=== PATIENT | female | born 1990 | race Caucasian/White ===

== ENCOUNTER → 2016-06-26 | Outpatient (REF) | payer OTHER ==
[2016-06-27 13:40] LABS: CREATININE, SERUM 0.5 MG/DL (0.6-1.0)
[2016-06-27 13:56] LABS: CREATININE CLEARANCE, URINE 187.7 ML/MIN (75-115)
== END | disposition home or self-care (01) ==
LOC: M LAB REF 21:00
PROVIDERS: ATTEND Advanced Practice Midwife
DX: Z36 Encounter for antenatal screening of mother (principal); Z34.81 Encounter for supervision of other normal pregnancy, first trimester

== ENCOUNTER → 2016-06-27 | Outpatient (REF) | payer OTHER ==
[2016-06-27 13:39] LABS: ALT/SGPT 24 U/L (12-78); AST/SGOT 16 U/L (15-37); BILIRUBIN,TOTAL 0.2 MG/DL (0.2-1.0); CREATININE FOR GFR 0.47 MG/DL (0.55-1.02); GLOMERULAR FILTRATION RATE > 60.0 (>60); URIC ACID 3.2 MG/DL (2.6-6.0)
== END | disposition home or self-care (01) ==
LOC: M LAB REF 13:19
PROVIDERS: ATTEND Advanced Practice Midwife
DX: Z34.81 Encounter for supervision of other normal pregnancy, first trimester (principal); Z36 Encounter for antenatal screening of mother; Z3A.00 Weeks of gestation of pregnancy not specified

== ENCOUNTER → 2016-08-03 | Outpatient (CLI) | payer MEDICAID ==
[~2016-08-03] MED LIST: ACET50TA PO; PRENTAB40 PO
--- NOTE | 2016-08-03 11:44 | REP ---
Clinical: Anatomical evaluation. Comparison: None . Findings: Examination demonstrates a single live intrauterine in breech presentation. motion is identified by technologist. Placenta is noted posterior and grade 0 without evidence for placenta previa or abruption. Amniotic fluid volume is normal. Cervix measures arrival 4.5 cm in length and appears closed. Nuchal cord cannot be excluded. Gestational age by LMP 18 weeks 0 days with CIARA 01/04/2017 . Gestational age by current measurements 18 weeks 2 days with CIARA 01/02/2017 . FHR equals 146 beats per minute. BPD 4.0 cm 18 weeks 0 days HC 16.1 cm 18 weeks 6 days AC 13.0 cm 18 weeks 4 days FL 2.6 cm 18 weeks 0 days HC/AC ratio 1.24 Estimated weight 233 grams ( 59th percentile). Anatomical assessment demonstrates normal structures including cranium, choroid plexus, cavum, cerebellum/posterior fossa, facial features, lungs, four-chamber heart/ventricular outflow tracts, diaphragm, stomach, cord insertion/three-vessel cord, kidneys/bladder, spine, and extremities. Impression: 1. Single live intrauterine in breech presentation demonstrating appropriate interval growth. Nuchal cord cannot be excluded. 2. Anatomical assessment is complete and normal. Signed by Zhao Baca MD 08/03/2016 11:36 A
== END ==
LOC: M RAD 09:48
PROVIDERS: ATTEND Advanced Practice Midwife
DX: Z34.82 Encounter for supervision of other normal pregnancy, second trimester (principal)

== ENCOUNTER → 2016-10-08 | Outpatient (CLI) | payer MEDICAID ==
[2016-10-08 13:49] LABS: MEAN CORPUSCULAR HEMOGLOBIN 26.2 pg (27.0-33.0); MEAN CORPUSCULAR HGB CONC 32.3 g/dl (32.0-36.5); MEAN CORPUSCULAR VOLUME 81.3 fl (80.0-96.0); RED CELL DISTRIBUTION WIDTH 14.6 % (11.5-14.5); WHITE BLOOD COUNT 10.1 K/mm3 (4.0-10.0)
== END ==
LOC: M SMT 09:52
PROVIDERS: ATTEND Advanced Practice Midwife
DX: Z34.82 Encounter for supervision of other normal pregnancy, second trimester (principal)

== ENCOUNTER → 2016-11-29 | Outpatient (CLI) | payer BC ==
[2016-11-29 14:46] LABS: MEAN CORPUSCULAR HEMOGLOBIN 25.6 pg (27.0-33.0); MEAN CORPUSCULAR HGB CONC 32.5 g/dl (32.0-36.5); MEAN CORPUSCULAR VOLUME 78.5 fl (80.0-96.0); RED CELL DISTRIBUTION WIDTH 16.2 % (11.5-14.5); WHITE BLOOD COUNT 8.6 K/mm3 (4.0-10.0)
== END ==
LOC: M WUC 11:16
PROVIDERS: ATTEND Specialist
DX: Z34.83 Encounter for supervision of other normal pregnancy, third trimester (principal)

== ENCOUNTER → 2016-12-08 | Outpatient (REF) | payer BC | LOC: M LAB REF 17:26 | PROVIDERS: ATTEND Specialist | DX: Z34.83 Encounter for supervision of other normal pregnancy, third trimester (principal) ==

== ENCOUNTER 2017-01-11 21:37 | Inpatient (IN) | payer BC, MEDICAID, SELFPAY ==
[~2017-01-11] VITALS: Ht 160 cm; Wt 92.0 kg
[2017-01-11 22:11] VITALS: BP 133/87
[2017-01-11] MEDS ORDERED: PRENTAB9 PO (22:21)
[2017-01-11 23:05] LABS: MEAN CORPUSCULAR HEMOGLOBIN 24.6 pg (27.0-33.0); MEAN CORPUSCULAR HGB CONC 32.4 g/dl (32.0-36.5); MEAN CORPUSCULAR VOLUME 75.8 fl (80.0-96.0); RED CELL DISTRIBUTION WIDTH 17.8 % (11.5-14.5); WHITE BLOOD COUNT 10.9 K/mm3 (4.0-10.0)
[2017-01-11 23:27] VITALS: BP 112/73
[2017-01-12] VITALS (21 sets, daily range): BP systolic 119–146; BP diastolic 68–94
[2017-01-12] MEDS ORDERED: LR 1,000 ML IV SCH (00:17)
[2017-01-12] MEDS ORDERED: OXYTOCIN DRIP 30 UNITS in APPROPRIATE DILUENT 1 EA IV SCH ×3 (00:30→05:48)
[2017-01-12] MEDS ORDERED: ONDANSETRON 4MG/2ML VIAL (J2405) As Ordered ONE (00:59)
[2017-01-12] MEDS ORDERED: ONDANSETRON 4MG/2ML VIAL (J2405) IV ONE (01:00)
[2017-01-12] MEDS ORDERED: CALCIUM CARBONATE 500 MG CHEW U/D PO ONE (01:00)
[2017-01-12] MEDS ORDERED: LIDOCAINE 1% MDV INJ 50 ML VIAL As Ordered ONE (04:55)
[2017-01-12] MEDS ORDERED: LIDOCAINE 1% MDV INJ 50 ML VIAL INFIL ONE (05:45)
[2017-01-12] MEDS ORDERED: ACETAMINOPHEN 500 MG TAB PO PRN (05:45)
[2017-01-12] MEDS ORDERED: RHOGAM 300 MCG (1500 IU) INJ (J2790) IM SCH (05:45)
[2017-01-12] MEDS ORDERED: MOM 30ML SUSPENSION UDC PO PRN (05:45)
[2017-01-12] MEDS ORDERED: ANUSOL HC CREAM 30GM TOP PRN (05:45)
[2017-01-12] MEDS ORDERED: METHYLERGONOVINE MALEATE 0.2 MG TAB PO PRN (05:45)
[2017-01-12] MEDS ORDERED: DIBUCAINE 1% OINTMENT 30GM TOP PRN (05:45)
[2017-01-12] MEDS ORDERED: DOCUSATE SODIUM 100 MG CAP PO PRN (05:45)
[2017-01-12] MEDS ORDERED: MEASLES,MUMPS,RUBELLA VACCINE INJ (MMR-II) (90707) SC SCH (05:45)
[2017-01-12] MEDS ORDERED: METHYLERGONOVINE MALEATE 0.2 MG/ML VIAL (J2210) As Ordered ONE (05:46)
[2017-01-12] MEDS ORDERED: miSOPROStol 200 MCG TAB (S0191) As Ordered ONE (05:46)
[2017-01-12] MEDS ORDERED: miSOPROStol 200 MCG TAB (S0191) PR ONE (06:00)
[2017-01-12] MEDS ORDERED: METHYLERGONOVINE MALEATE 0.2 MG/ML VIAL (J2210) IM ONE (06:00)
[2017-01-12] MEDS: IBUPROFEN 800 MG TAB PO PRN ×2 (06:19→18:34)
--- NOTE | 2017-01-12 08:17 | HPE ---
DATE OF ADMISSION: 01/11/2017 REASON FOR ADMISSION: Induction of labor. HISTORY OF PRESENT ILLNESS: Mrs. Baxter is a 26-year-old 2, para 1, who presents at 40 and 6 weeks estimated gestational age by last menstrual period, confirmed by first trimester ultrasound, for induction of labor. course has been unremarkable. She initiated care in the first trimester and has been appropriate throughout. PAST MEDICAL HISTORY: None. PAST SURGICAL HISTORY: She has had tonsillectomy and adenoidectomy, as well as oral surgery. PAST OBSTETRICAL HISTORY: She is a 2, para 1. She has had a term delivery proven to 7 pounds 4 ounces. That was complicated by preeclampsia. MEDICATIONS: vitamins. ALLERGIES: PENICILLIN. SOCIAL HISTORY: She denies any alcohol, tobacco or drug use during the . She lives at home with her and her 2-year-old son. PHYSICAL EXAMINATION: VITAL SIGNS: Stable. She is afebrile. She has a category 1 heart rate tracing with some irregular contractions on tocometer. GENERAL APPEARANCE: Well appearing. No acute distress. LUNGS: Clear to auscultation bilaterally. CARDIOVASCULAR: Heart regular rate and rhythm. CERVICAL EXAM: She is 4 cm dilated, 70% effaced, -2 station. LABORATORY DATA: Blood type is O positive, antibody screen is negative, Rubella is immune, RPR is nonreactive, hepatitis surface antigen is negative, HIV is negative, hepatitis C is nonreactive, Chlamydia and Gonorrhea negative. She had a normal one-hour Glucola. She is Group B streptococcus (GBS) negative. ASSESSMENT: Ms. Baxter is a 26-year-old 2, para 1 at 40 weeks 6 days estimated gestational age here for induction of labor. 2. Reassuring status. PLAN: Admit to labor and delivery. 1. CBC, RPR, type and screen. 2. The patient has been thoroughly counseled in regard to induction of labor. I have discussed medications, as well as procedures performed in labor and delivery. She has also been verbally consented for emergency surgery, blood products, anesthesia and desires to proceed with admission. 3. We will initiate her induction with Pitocin. 4. The patient is a good candidate for epidural.
[2017-01-12] MEDS: PRENATAL VITAMINS CHEWABLE TABLET PO SCH (08:36)
--- NOTE | 2017-01-12 09:57 | DN ---
DATE: 01/12/2017 TIME OF : 0453 GENDER: Male. APGARS: 9 and 9. WEIGHT: 4294 grams or 9 pounds 7 ounces. ANESTHESIA: None. LACERATIONS: First degree midline laceration. COUNTS: Two sharps removed from the delivery field, five laparotomy sponges, accounted for prior to and after delivery. DELIVERY NOTE: On 01/12/2017, at 0453, Mrs. Baxter, a 26-year-old, 2, now para 2, had a spontaneous vaginal delivery of a live born male infant, Apgars of 9 and 9, and weight is 4294 grams or 9 pounds 7 ounces. Head was delivered occiput anterior (OA) and there was a loose nuchal cord which was manually reduced followed by delivery of left anterior shoulder, right posterior shoulder and corpus. The infant was then handed to mom with a good cry. Cord was then clamped times two and was cut by the father of the baby under my direction. Cord blood was then obtained. Placenta was then drained and delivered grossly intact. A premixed bag of 500 mL of normal saline with 30 units of Pitocin was then bolused along with uterine massage until the uterus was firm. On inspection, there was a first degree midline laceration which was repaired with #3-0 Vicryl Rapide. On reinspection, the cervix, vagina and perineum were grossly intact and hemostatic. Mom recovering in stable condition. Estimated blood loss was 300 mL. The couple has decided to name their son, Arturo.
[2017-01-13 06:10] VITALS: BP 130/64
[2017-01-13] MEDS: IBUPROFEN 800 MG TAB PO PRN (09:01)
[2017-01-13] MEDS: PRENATAL VITAMINS CHEWABLE TABLET PO SCH (09:01)
== END 2017-01-13 14:00 | disposition home or self-care (01) | DRG 560 ==
LOC: M LDI 21:37 → M OBS 01-12 07:35
PROVIDERS: ADMIT Obstetrics & Gynecology; ATTEND Obstetrics & Gynecology
PROC: 3E033VJ Introduction of Other Hormone into Peripheral Vein, Percutaneous Approach (ICD-10-PCS; 2017-01-11)
PROC: 10E0XZZ Delivery of Products of Conception, External Approach (ICD-10-PCS; principal; 2017-01-12)
PROC: 0HQ9XZZ Repair Perineum Skin, External Approach (ICD-10-PCS; 2017-01-12)
DX: O48.0 Post-term pregnancy (principal); O69.81X0 Labor and delivery complicated by cord around neck, without compression, not applicable or unspecified; Z3A.40 40 weeks gestation of pregnancy; O70.0 First degree perineal laceration during delivery; Z37.0 Single live birth

== ENCOUNTER → 2017-06-22 | Outpatient (REF) | payer OTHER | LOC: M LAB REF 21:24 | DX: M54.5 Low back pain (principal) ==

== ENCOUNTER → 2017-09-08 | Outpatient (REF) | payer OTHER ==
[2017-09-08 14:01] LABS: INFLUENZA A AMPLIFICATION NEGATIVE (NEGATIVE); INFLUENZA B AMPLIFICATION NEGATIVE (NEGATIVE)
== END ==
LOC: M LAB REF 13:00
DX: J11.1 Influenza due to unidentified influenza virus with other respiratory manifestations (principal)

== ENCOUNTER → 2017-10-25 | Outpatient (REF) | payer OTHER | LOC: M LAB REF 17:29 | DX: Z12.4 Encounter for screening for malignant neoplasm of cervix (principal) | CPT/HCPCS: 88142 ==

== ENCOUNTER → 2017-10-27 | Outpatient (CLI) | payer OTHER | LOC: M RAD 18:10 | DX: E04.1 Nontoxic single thyroid nodule (principal) | CPT/HCPCS: 76536 ==

== ENCOUNTER → 2017-11-11 | Outpatient (CLI) | payer OTHER ==
[2017-11-11 18:05] LABS: FREE T4 1.12 NG/DL (0.76-1.46)
[2017-11-11 18:05] LABS: THYROID STIMULATING HORMONE 0.193 uIU/ML (0.358-3.740)
== END ==
LOC: M WUC 16:02
DX: Z39.2 Encounter for routine postpartum follow-up (principal)
CPT/HCPCS: 84443

== ENCOUNTER → 2018-06-16 | Outpatient (CLI) | payer OTHER ==
[~2018-06-16] MED LIST changes: -ACET50TA PO; +MAPA500T2 PO; +PRENTAB9 PO
--- NOTE | 2018-06-16 18:56 | REP ---
Thyroid sonography: History: Dizziness. Thyroid disorder. Findings: Thyroid isthmus is 0.5 cm in thickness. Thyroid parenchyma is somewhat heterogeneous. Right lobe dimensions are 5.0 x 1.9 x 1.5 cm. Left lobe by ultrasound is 4.9 x 1.3 x 1.2 cm. Multiple tiny cystic areas are seen in each lobe of the thyroid. No solid nodule is appreciated. The cystic foci range up to 0.4 cm in greatest diameter. There are two on the left and four on the right. Impression: Multiple tiny thyroid cysts. No nodule seen. Otherwise unremarkable thyroid sonography. Electronically Signed by Junito June MD 06/16/2018 07:30 P
== END ==
LOC: M RAD 15:37
PROVIDERS: ATTEND Otolaryngology
DX: E04.1 Nontoxic single thyroid nodule (principal); R42 Dizziness and giddiness

== ENCOUNTER → 2018-06-29 | Outpatient (CLI) | payer OTHER ==
[2018-06-29 14:12] LABS: FREE T4 1.2 NG/DL (0.76-1.46); THYROID STIMULATING HORMONE 1.03 uIU/ML (0.358-3.740)
== END ==
LOC: M LAB 12:42
PROVIDERS: ATTEND Otolaryngology
DX: E07.9 Disorder of thyroid, unspecified (principal)

== ENCOUNTER → 2019-05-14 | Outpatient (CLI) | payer BC ==
[2019-05-14 13:13] LABS: BASO % 0.2 % (0.0-1.0); EOS # 0.1 10^3/uL (0.0-0.5); EOS % 0.7 % (0.0-3.0); HEMATOCRIT 38.4 % (36.0-47.0); HEMOGLOBIN 12.6 g/dl (12.0-15.5); LYMPH # 2.2 10^3/uL (1.5-5.0); LYMPH % 19.7 % (24.0-44.0); MEAN CORPUSCULAR HEMOGLOBIN 28.1 pg (27.0-33.0); MEAN CORPUSCULAR HGB CONC 32.8 g/dl (32.0-36.5); MEAN CORPUSCULAR VOLUME 85.5 fl (80.0-96.0); MONO # 0.6 10^3/uL (0.0-0.8); MONO % 5.4 % (0.0-5.0); NEUTROPHILS # 8.1 10^3/uL (1.5-8.5); NEUTROPHILS % 73.5 % (36.0-66.0); PLATELET COUNT, AUTOMATED 187 10^3/uL (150-450); RED BLOOD COUNT 4.49 10^6/uL (4.00-5.40)
[2019-05-14 13:38] LABS: ALT/SGPT 23 U/L (12-78); BILIRUBIN,TOTAL 0.2 MG/DL (0.2-1.0); GLOMERULAR FILTRATION RATE > 60.0 (>60); LDH LACTATE DEHYDROGENASE 196 U/L (84-246); URIC ACID 2.9 MG/DL (2.6-6.0)
[2019-05-14 13:40] LABS: TOTAL PROTEIN,RANDOM URINE 27.4 MG/DL (0.0-12.0)
[2019-05-14 14:06] LABS: RUBELLA IgG QUALITATIVE IMMUNE (IMMUNE)
[2019-05-14 14:35] LABS: HEPATITIS C VIRUS ABY INDEX 0.1 INDEX (<0.8); HIV 1&2 SCREEN CENTAUR NEGATIVE (NEGATIVE)
[2019-05-14 15:11] LABS: CHLAMYDIA DNA AMPLIFICATION NEGATIVE (NEGATIVE); GC DNA AMPLIFICATION NEGATIVE (NEGATIVE)
== END ==
LOC: M LAB 12:08
PROVIDERS: ATTEND Advanced Practice Midwife
DX: Z34.81 Encounter for supervision of other normal pregnancy, first trimester (principal)

== ENCOUNTER → 2019-05-28 | Outpatient (CLI) | payer BC ==
--- NOTE | 2019-05-28 09:49 | REP ---
Obstetric sonography: History: Supervision of for anatomy. Findings: Scanning through the gravid uterus demonstrates a viable single intrauterine gestation in a transverse lie, head to the maternal right. motion was observed and heart rate is recorded at 147 beats per minute. An anterior grade zero placenta is seen without evidence of previa or abruption. Amniotic fluid is subjectively normal. Closed cervical length is measured at 4.3 cm, viewed transabdominally. No extrauterine abnormality is observed. Umbilical cord is seen draping over the neck. No anomaly is seen. Right ventricular cardiac outflow tract and spine views are less than optimal due to position. The following additional anatomic structures are identified and felt to be sonographically unremarkable: cranium, choroid plexus, cavum, cerebellum posterior fossa, face and profile, lungs, four-chamber heart with left ventricular outflow tract view, diaphragm, left-sided stomach, abdominal wall cord insertion, three-vessel umbilical cord, kidneys and bladder, upper and lower extremities. Biometry chart: BPD 4.0 cm 18 weeks 2 days Head circumference 15.4 cm 18 weeks 3 days Abdominal circumference 13.4 cm 18 weeks 6 days femur length 2.9 cm 18 weeks 5 days humeral length 2.7 cm 18 weeks 5 days HC/AC ratio normal 1.15, cephalic index normal 0.72 estimated weight 257 grams, 0 pounds 9 ounces, 64th percentile for 18 weeks 2 days. Impression: Viable single intrauterine gestation of 18 weeks 4 days by today's composite criteria. CIARA by today's sonography . No abnormalities observed. Right ventricular cardiac outflow tract and spine visualization was less than optimal however. Electronically Signed by Junito June MD 05/28/2019 10:25 A
== END ==
LOC: M RAD 07:15
PROVIDERS: ATTEND Advanced Practice Midwife
DX: Z34.92 Encounter for supervision of normal pregnancy, unspecified, second trimester (principal); Z3A.18 18 weeks gestation of pregnancy

== ENCOUNTER → 2019-06-22 | Outpatient (CLI) | payer BC | LOC: M WHC 16:08 | PROVIDERS: ATTEND Advanced Practice Midwife | DX: Z34.82 Encounter for supervision of other normal pregnancy, second trimester (principal); Z53.8 Procedure and treatment not carried out for other reasons ==

== ENCOUNTER → 2019-06-29 | Outpatient (CLI) | payer BC ==
--- NOTE | 2019-06-30 11:49 | REP ---
Obstetric sonography: History: Supervision of followup anatomy. Findings: Scanning through the gravid uterus demonstrates a viable single intrauterine gestation in a cephalic lie. motion is observed and heart rate is recorded at 139 beats per minute. An anterior grade 1 placenta is seen without evidence of previa or abruption. Amniotic fluid is subjectively normal. Closed cervical length is measured at 3.3 cm, viewed transabdominally. No extrauterine abnormalities observed. There has been appropriate interval growth. spine and right ventricular outflow tract visualization was achieved and these structures appear normal. These structures were less than optimally visualized previously on 05/28/2019. Biometry chart: BPD 5.5 cm = 22 weeks 5 days Head circumference 21.2 cm = 23 weeks 2 days Abdominal circumference 20.1 cm = 24 weeks 5 days Femur length 4.2 cm = 23 weeks 5 days Humeral length 3.9 cm = 23 weeks 6 days HC/AC ratio normal 1.05. Cephalic index normal 0.71. Estimated weight 661 grams, 1 pound 7 ounces, 85th percentile for 22 weeks 6 days. Impression: Viable single intrauterine gestation at 23 weeks 2 days by today's composite sonographic criteria. Expected gestational age estimate based on prior sonography is 22 weeks 6 days. CIARA by prior sonography October 27, 2019. In conjunction with the previous study, anatomic survey is felt to be complete.
== END ==
LOC: M WHC 14:58
PROVIDERS: ATTEND Advanced Practice Midwife
DX: Z36.89 Encounter for other specified antenatal screening (principal); Z3A.23 23 weeks gestation of pregnancy

== ENCOUNTER → 2019-07-20 | Outpatient (CLI) | payer BC ==
[2019-07-20 14:46] LABS: HEMOGLOBIN 10.9 g/dl (12.0-15.5); MEAN CORPUSCULAR HEMOGLOBIN 27.3 pg (27.0-33.0); MEAN CORPUSCULAR HGB CONC 31.1 g/dl (32.0-36.5); MEAN CORPUSCULAR VOLUME 87.7 fl (80.0-96.0); PLATELET COUNT, AUTOMATED 169 10^3/uL (150-450); RED BLOOD COUNT 3.99 10^6/uL (4.00-5.40); WHITE BLOOD COUNT 12.5 10^3/uL (4.0-10.0)
== END ==
LOC: M PLALAB 11:05
PROVIDERS: ATTEND Advanced Practice Midwife
DX: Z36.89 Encounter for other specified antenatal screening (principal)

== ENCOUNTER → 2019-10-04 | Outpatient (REF) | payer BC, MEDICAID | LOC: M SFHCWAGY 10:11 | PROVIDERS: ATTEND Obstetrics & Gynecology | DX: Z36.89 Encounter for other specified antenatal screening (principal); Z3A.36 36 weeks gestation of pregnancy ==

== ENCOUNTER 2019-10-24 13:31 | Inpatient (IN) | payer BC, MEDICAID ==
[2019-10-24] VITALS (13 sets, daily range): BP systolic 116–138; BP diastolic 69–90
[~2019-10-24] VITALS: Ht 160 cm; Wt 100.3 kg
[2019-10-24] MEDS ORDERED: miSOPROStol 50 MCG 1/2 TAB (S0191) PO ONE (14:00)
[2019-10-24 15:10] LABS: HEMOGLOBIN 8.5 g/dl (12.0-15.5); MEAN CORPUSCULAR HGB CONC 30.4 g/dl (32.0-36.5); MEAN CORPUSCULAR VOLUME 72.5 fl (80.0-96.0); PLATELET COUNT, AUTOMATED 172 10^3/uL (150-450); RED BLOOD COUNT 3.86 10^6/uL (4.00-5.40); WHITE BLOOD COUNT 10.3 10^3/uL (4.0-10.0)
--- NOTE | 2019-10-24 15:55 | HPE ---
DATE OF ADMISSION: 10/24/2019 Lexie is a 29-year-old 3, para 2-0-0-2. She is at 39-4/7 weeks gestation, estimated date of confinement (EDC) of 10/27/2019 based on last menstrual period, confirmed by first-trimester ultrasound. She presents to labor and delivery today for induction of labor. She denies any regular painful contractions, vaginal bleeding, and leakage of fluid. The fetus has been active. Her care was initiated at [facility], which [facility], in the first trimester. Her course complicated by a history of preeclampsia in her first . She has been taking aspirin 81 mg daily. Baseline labs were ordered and returned normal results. OBSTETRICAL HISTORY: On December 2014, 37 weeks gestation, vaginal delivery following an induction of labor due to preeclampsia. January 2017, vaginal delivery, 9-pound 7-ounce male, induction of labor at 41 weeks gestation. OBSTETRIC LABORATORIES: O positive, antibody screen negative, RPR negative. Hepatitis B surface antigen negative. Hepatitis C antibody nonreactive. HIV negative, rubella immune. Gonorrhea and chlamydia negative. Urine culture no growth, and GBS is negative. She did have normal gestational diabetic screening of 102. MEDICAL HISTORY: Noncontributory. SURGERIES: 1. Tonsillectomy. 2. Adenectomy. 3. [place] tooth extraction. FAMILY HISTORY: Hypertension. SOCIAL HISTORY: The patient is . She is a nonsmoker. She denies alcohol and drug use. No history of sexually transmitted infections, and she denies history of abuse, physical, sexual, and emotional. ALLERGIES: PENICILLIN CURRENT MEDICATIONS: vitamins OBJECTIVE: Temperature 98.7, pulse 114, respirations 16, blood pressure (BP) 124/78. heart rate is 150 with moderate variability, positive accelerations. No decelerations observed. Contractions are every 5-10 minutes. They do palpate quite mild. Abdomen is gravid, cephalic presentation, confirmed with bedside Helder's maneuver. Estimated weight 9 pounds. Sterile vaginal exam is 2 cm dilated, 80% effaced, -2 station, posterior, and soft. ASSESSMENT: Uterine at 39-4/7. heart rate category 1. PLAN: Admit the patient to labor and delivery. Routine labs. Out of bed ad [place]. Regular diet at this time. The patient is uncertain if she wants an epidural with her labor. I will start one dose of misoprostol for cervical ripening and then will start intravenous (IV) Pitocin for labor induction. I will consider assisted rupture of membranes for labor augmentation. The patient has had risks, benefits, and alternatives reviewed. She and her have all of their questions answered, and she has been verbally consented for emergency surgery and blood products if they are necessary. I do anticipate cervical ripening, active labor, and a vaginal delivery.
[2019-10-24] MEDS ORDERED: LR 1,000 ML IV SCH (18:08)
[2019-10-24] MEDS ORDERED: OXYTOCIN DRIP 30 UNITS in IV 1 EA IV SCH (18:15)
[2019-10-25] VITALS (22 sets, daily range): BP systolic 123–163; BP diastolic 66–93
[2019-10-25] MEDS ORDERED: FENTANYL 2MCG/ML ROPIVACAINE 0.2% IN 0.9% NACL 100ML IVBAG As Ordered ONE (01:46)
[2019-10-25] MEDS ORDERED: ONDANSETRON 4MG/2ML VIAL IV PRN (02:00)
[2019-10-25] MEDS ORDERED: ePHEDrine SULFATE 25 MG/5 ML(5MG/ML) SYRINGE IV PRN (02:00)
[2019-10-25] MEDS ORDERED: REFRIGERATOR IV KEYS XX PRN (02:00)
[2019-10-25] MEDS ORDERED: diphenhydrAMINE 50MG/ML VIAL (J1200) IV PRN (02:00)
[2019-10-25] MEDS ORDERED: FENTANYL/ROPIVACAINE/NACL BAG 100 ML EPIDURAL SCH (02:00)
[2019-10-25] MEDS ORDERED: EPIDURAL/PCA KEYS XX PRN (02:00)
[2019-10-25] MEDS ORDERED: NALOXONE INJ 0.4MG/1ML VIAL (J2310 PER 1MG) IV PRN (02:00)
[2019-10-25] MEDS ORDERED: EPIDURAL COMMENT XX SCH (02:00)
[2019-10-25] MEDS ORDERED: LACTATED RINGER'S 1000 ML IV PRN (02:00)
[2019-10-25] MEDS ORDERED: OXYTOCIN DRIP 30 UNITS in IV 1 EA IV SCH ×2 (03:47→04:18)
[2019-10-25] MEDS ORDERED: DIBUCAINE 1% OINTMENT 30GM TOP PRN (04:00)
[2019-10-25] MEDS ORDERED: RHOGAM 300 MCG (1500 IU) INJ (J2790) IM SCH (04:00)
[2019-10-25] MEDS ORDERED: MEASLES,MUMPS,RUBELLA VACCINE INJ (MMR-II) (90707) SC SCH (04:00)
[2019-10-25] MEDS ORDERED: ACETAMINOPHEN TAB 650MG DOSE (2X325MG) PO PRN (04:00)
[2019-10-25] MEDS ORDERED: METHYLERGONOVINE MALEATE 0.2 MG TAB PO PRN (04:00)
[2019-10-25] MEDS ORDERED: DOCUSATE SODIUM 100 MG CAP PO PRN (04:00)
[2019-10-25] MEDS ORDERED: ACETAMINOPHEN 500 MG TAB PO PRN (04:00)
[2019-10-25] MEDS ORDERED: IBUPROFEN 600 MG TAB PO PRN (04:00)
[2019-10-25] MEDS ORDERED: METHYLERGONOVINE MALEATE 0.2 MG/ML VIAL (J2210) IM ONE (04:30)
[2019-10-25] MEDS: PRENATAL VITAMINS CHEWABLE TABLET PO SCH (08:11)
[2019-10-25] MEDS: IBUPROFEN 800 MG TAB PO PRN (08:11)
--- NOTE | 2019-10-25 08:32 | DN ---
DATE: 10/25/2019 Lexie is a 29-year-old 3, para 3-0-0-3 now who was admitted to labor and delivery for induction of labor. She had one dose of misoprostol and IV Pitocin labor and did ensue. She did attempt to have an epidural for her labor coping. She had assisted rupture of membranes for a scant amount of clear fluid at 0104. She reached complete dilation at 0310. She pushed to a normal spontaneous vaginal delivery of a live female infant in left occiput anterior (SHEELA) position with restitution to left occiput transverse (LOT) position at 0316. There was a nuchal cord times two loose that was reduced manually at the time of delivery. [place] shoulders delivered with gentle downward traction and the corpus immediately followed. The newborns mouth and nares were bulb suctioned and she was placed on maternal abdomen for bonding crying and active. The cord was clamped times two. Once pulsations ceased it was cut by the father of the baby under my direction. A cord blood was obtained. Spontaneous expulsion of an intact placenta with three-vessel cord by Marquez mechanism was at 0320. Uterine hemostasis achieved with IV Pitocin rapid infusion and uterine fundal massage. Estimated blood loss 200 mL. Perineum and vagina inspected noted to be intact. female weighed 10 pounds 1 ounce, 4570 grams, 8 and 9. Mom is going to breastfeed her daughter and the family have named her Tabby. At the close of delivery lap counts and instrument counts were correct and verified.
[2019-10-26] MEDS: IBUPROFEN 800 MG TAB PO PRN (03:35)
[2019-10-26 06:00] VITALS: BP 127/75
[2019-10-26] MEDS: PRENATAL VITAMINS CHEWABLE TABLET PO SCH (09:00)
== END 2019-10-26 13:30 | disposition home or self-care (01) | DRG 560 ==
LOC: M LDI 13:31 → M OBS 10-25 06:00
PROVIDERS: ADMIT Advanced Practice Midwife; ATTEND Advanced Practice Midwife
PROC: 3E0P7GC Introduction of Other Therapeutic Substance into Female Reproductive, Via Natural or Artificial Opening (ICD-10-PCS; 2019-10-24)
PROC: 10E0XZZ Delivery of Products of Conception, External Approach (ICD-10-PCS; principal; 2019-10-25)
PROC: 10907ZC Drainage of Amniotic Fluid, Therapeutic from Products of Conception, Via Natural or Artificial Opening (ICD-10-PCS; 2019-10-25)
DX: O69.81X0 Labor and delivery complicated by cord around neck, without compression, not applicable or unspecified (principal); Z3A.39 39 weeks gestation of pregnancy; Z37.0 Single live birth

== ENCOUNTER → 2019-11-03 | Outpatient (CLI) | payer BC, MEDICAID ==
[2019-11-03 17:38] LABS: BASO # 0.1 10^3/uL (0.0-0.2); BASO % 0.8 % (0.0-1.0); EOS # 0.1 10^3/uL (0.0-0.5); EOS % 2.1 % (0.0-3.0); HEMATOCRIT 33.1 % (36.0-47.0); HEMOGLOBIN 9.4 g/dl (12.0-15.5); LYMPH # 1.6 10^3/uL (1.5-5.0); LYMPH % 24.6 % (24.0-44.0); MEAN CORPUSCULAR HEMOGLOBIN 21.6 pg (27.0-33.0); MEAN CORPUSCULAR HGB CONC 28.4 g/dl (32.0-36.5); MEAN CORPUSCULAR VOLUME 75.9 fl (80.0-96.0); MONO # 0.3 10^3/uL (0.0-0.8); MONO % 4.6 % (0.0-5.0); NEUTROPHILS # 4.3 10^3/uL (1.5-8.5); NEUTROPHILS % 67.6 % (36.0-66.0); PLATELET COUNT, AUTOMATED 275 10^3/uL (150-450); RED BLOOD COUNT 4.36 10^6/uL (4.00-5.40); WHITE BLOOD COUNT 6.3 10^3/uL (4.0-10.0)
== END ==
LOC: M WUC 09:49
PROVIDERS: ATTEND Advanced Practice Midwife
DX: D64.9 Anemia, unspecified (principal)

== ENCOUNTER → 2020-06-24 | Outpatient (REF) | payer MEDICAID, OTHER | LOC: M SFHCWAGY 17:33 | PROVIDERS: ATTEND Obstetrics & Gynecology | DX: Z12.4 Encounter for screening for malignant neoplasm of cervix (principal) ==

== ENCOUNTER → 2022-10-06 | Outpatient (REF) | payer OTHER | LOC: M SFHCWAGY 17:23 | PROVIDERS: ATTEND Obstetrics & Gynecology | DX: Z12.4 Encounter for screening for malignant neoplasm of cervix (principal) | CPT/HCPCS: 87624; G0123 ==

== ENCOUNTER → 2023-01-31 | Outpatient (CLI) | payer OTHER ==
[2023-01-31 10:10] LABS: BASO % 0.4 % (0.0-1.0); EOS # 0.2 10^3/uL (0.0-0.5); EOS % 2.5 % (0.0-3.0); HEMATOCRIT 40.5 % (36.0-47.0); MEAN CORPUSCULAR HEMOGLOBIN 27.7 pg (27.0-33.0); MEAN CORPUSCULAR HGB CONC 32.1 g/dl (32.0-36.5); MEAN CORPUSCULAR VOLUME 86.2 fl (80.0-96.0); MONO # 0.6 10^3/uL (0.0-0.8); MONO % 6.2 % (2.0-8.0); NEUTROPHILS # 6.6 10^3/uL (1.5-8.5); NEUTROPHILS % 69.6 % (36.0-66.0); PLATELET COUNT, AUTOMATED 230 10^3/uL (150-450); WHITE BLOOD COUNT 9.6 10^3/uL (4.0-10.0)
[2023-01-31 10:58] LABS: ALBUMIN 3.7 G/DL (3.2-5.2); ALKALINE PHOSPHATASE 63 U/L (46-116); ALT/SGPT 16 U/L (7.0-40); AST/SGOT 11 U/L (<34); BILIRUBIN,TOTAL 0.4 MG/DL (0.3-1.2); BLOOD UREA NITROGEN 8 MG/DL (9-23); CALCIUM LEVEL 8.8 MG/DL (8.5-10.1); CARBON DIOXIDE LEVEL 26 MMOL/L (20-31); CHLORIDE LEVEL 108 MMOL/L (98-107); CHOLESTEROL LEVEL 182 MG/DL (<200); CHOLESTEROL RISK RATIO 3.61 (<5); CREATININE FOR GFR 0.57 MG/DL (0.55-1.30); FREE T4 0.97 NG/DL (0.89-1.76); GLOMERULAR FILTRATION RATE > 60.0 (>60); GLUCOSE, FASTING 86 MG/DL (60-100); HDL CHOLESTEROL 50.4 MG/DL (>40); NON-HDL-C 131.6 MG/DL; POTASSIUM SERUM 3.9 MMOL/L (3.5-5.1); SODIUM LEVEL 138 MMOL/L (136-145); THYROID STIMULATING HORMONE 2.149 uIU/ML (0.55-4.78); TOTAL 25(OH) VITAMIN D 22.8 NG/ML (20.0-100.0); TOTAL PROTEIN 6.9 G/DL (5.7-8.2); TRIGLYCERIDES LEVEL 93 MG/DL (<150)
== END ==
LOC: M WUC 09:20
PROVIDERS: ATTEND Physician Assistant
DX: Z00.00 Encounter for general adult medical examination without abnormal findings (principal); E04.2 Nontoxic multinodular goiter; E66.9 Obesity, unspecified

== ENCOUNTER → 2023-02-10 | Outpatient (CLI) | payer OTHER | LOC: M RAD 11:11 | PROVIDERS: ATTEND Physician Assistant | DX: E04.2 Nontoxic multinodular goiter (principal); E66.9 Obesity, unspecified ==

== ENCOUNTER → 2024-05-14 | Outpatient (CLI) | payer OTHER | LOC: M RAD 15:51 | PROVIDERS: ATTEND Otolaryngology | DX: E04.2 Nontoxic multinodular goiter (principal) ==